=== PATIENT | female | born 1985 | race Caucasian/White ===

== ENCOUNTER 2023-11-09 12:58 | Emergency (ER) | payer MEDICAID ==
[~2023-11-09] VITALS: Ht 165.1 cm; Wt 72.6 kg
[2023-11-09 13:06] VITALS: O2SAT 99
[2023-11-09 15:12] LABS: CLARITY URINE CLOUDY (CLEAR); COLOR URINE YELLOW (YELLOW); GLUCOSE URINE NEGATIVE (NEGATIVE); KETONES URINE NEGATIVE (NEGATIVE); LEUKOCYTE ESTERASE URINE 3+ (NEGATIVE); NITRITE URINE NEGATIVE (NEGATIVE); OCCULT BLOOD URINE NEGATIVE (NEGATIVE); PROTEIN URINE NEGATIVE (NEGATIVE); UROBILINOGEN URINE 0.2 E.U./dL (0.2-1.0)
[2023-11-09 15:16] LABS: BASOPHILS % 0.9 % (0.0-2.0); EOSINOPHILS % 0.1 % (0.0-5.0); HEMOGLOBIN. 13.2 g/dL (12.0-16.0); LYMPHOCYTES % 19.3 % (20.0-50.0); MEAN CORPUSCULAR HGB CONC 33.9 g/dL (31.0-37.0); MEAN CORPUSCULAR VOLUME 82.8 fL (81.0-99.0); MEAN PLATELET VOLUME 7.5 fl (7.4-10.4); MONOCYTES % 4.9 % (2.0-8.0); NEUTROPHILS % 74.8 % (40.0-76.0); PLATELET 404 x1000/uL (130-400); RED BLOOD CELL COUNT 4.71 mill/uL (4.2-5.4); RED CELL DISTRIBUTION WIDTH 14.2 % (11.6-14.6); WHITE BLOOD COUNT 8.4 x1000/uL (4.5-11.0)
[2023-11-09 15:20] LABS: *AMPHETAMINES SCREEN URINE NEGATIVE (NEGATIVE)
[2023-11-09 15:21] LABS: *BARBITURATES SCREEN URINE NEGATIVE (NEGATIVE); *BENZODIAZEPINES SCREEN URINE NEGATIVE (NEGATIVE); *COCAINE SCREEN URINE NEGATIVE (NEGATIVE); CANNABINOID URINE SCREEN NEGATIVE (NEGATIVE); ECSTASY MDMA SCREEN URINE CONF.TEST INDICATED (NEGATIVE); METHADONE URINE SCREEN NEGATIVE (NEGATIVE); OPIATES URINE SCREEN NEGATIVE (NEGATIVE); PHENCYCLIDINE URINE SCREEN NEGATIVE (NEGATIVE)
[2023-11-09 15:23] LABS: CHLORIDE 106 mEq/L (98-107); POTASSIUM 3.8 mEq/L (3.5-5.1); SODIUM 138 mEq/L (136-145)
[2023-11-09 15:24] LABS: CALCIUM 9.8 mg/dL (8.7-10.4); CARBON DIOXIDE 25 mEq/L (21-32)
[2023-11-09 15:29] LABS: CREATININE 0.9 mg/dL (0.6-1.0); GLUCOSE 112 mg/dL (70-105); HCG SCREEN NEGATIVE; UREA NITROGEN BLOOD 10 mg/dL (9-23)
[2023-11-09 15:30] LABS: ETHANOL BLOOD < 10 mg/dL (<10)
[2023-11-09 16:26] LABS: BACTERIA URINE 3+; RBC URINE 0-2 /hpf (0-2); SQUAMOUS EPITHELIAL CELL URINE 2+ /lpf (RARE/1+)
[2023-11-09 16:27] LABS: WBC URINE 25-50 /hpf (0-2)
[2023-11-09] MEDS: CEPHALEXIN 250MG CAPSULE PO SCH (20:00)
[2023-11-10] MEDS: DIPHENHYDRAMINE 25MG CAPSULE PO ONE (01:00)
[2023-11-10 12:12] LABS: *AMPHETAMINES SCREEN URINE NEGATIVE (NEGATIVE)
[2023-11-10 12:13] LABS: *BARBITURATES SCREEN URINE NEGATIVE (NEGATIVE); *BENZODIAZEPINES SCREEN URINE NEGATIVE (NEGATIVE); *COCAINE SCREEN URINE NEGATIVE (NEGATIVE); CANNABINOID URINE SCREEN NEGATIVE (NEGATIVE); ECSTASY MDMA SCREEN URINE NEGATIVE (NEGATIVE); METHADONE URINE SCREEN NEGATIVE (NEGATIVE); OPIATES URINE SCREEN NEGATIVE (NEGATIVE); PHENCYCLIDINE URINE SCREEN NEGATIVE (NEGATIVE)
[2023-11-10] MEDS: BUPROPION HCL 150MG TABLET XL 24HR PO NR (12:55)
[2023-11-10] MEDS: HYDROXYZINE 10MG TABLET PO PRN (13:16)
[2023-11-10 16:11] VITALS: BP 123/76; PULSE 72; RESP 16; TEMP 36.83628; O2SAT 100
[2023-11-11] MEDS ORDERED: PAROXETINE HCL 10MG TABLET PO SCH (09:00)
== END 2023-11-10 18:56 ==
LOC: ER 12:58
DX: R45.851 Suicidal ideations (principal); N39.0 Urinary tract infection, site not specified; F41.9 Anxiety disorder, unspecified; F43.10 Post-traumatic stress disorder, unspecified; Z20.822 Contact with and (suspected) exposure to COVID-19; Z88.5 Allergy status to narcotic agent
CPT/HCPCS: 80305 ×2; 80048; 81003; 80320; 84703; 85025; 87086; 36415; 93005; 99285; 87426; Q0163; G0480